=== PATIENT | male | born 1990 | race Caucasian/White ===

== ENCOUNTER 2016-11-15 21:17 | Emergency (ER) | payer BC ==
[2016-11-15 21:26] VITALS: BP 141/93
[2016-11-15] MEDS ORDERED: Tetan/Diph/Pertus SYR(Tdap)* 0.5 ML SYR(BOOSTRIX) use SYR IM ONE (22:18)
--- NOTE | 2016-11-15 22:40 | RAD ---
INDICATION: Left foot injury. TECHNIQUE: 3 views of the left foot were obtained. FINDINGS: The bones are in normal alignment. No fracture is seen. Joint spaces appear maintained. IMPRESSION: 1. NO EVIDENCE FOR FRACTURE. 2. THERE WAS A CLINICAL CONCERN FOR LISFRANC INJURY. THIS CAN BE FURTHER EVALUATED WITH AN MRI OF THE FOOT.
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
== END 2016-11-15 23:10 | disposition home or self-care (01) ==
LOC: UCEAST 21:17
DX: S91.312A Laceration without foreign body, left foot, initial encounter (principal); Z88.3 Allergy status to other anti-infective agents; Z88.0 Allergy status to penicillin; W45.8XXA Other foreign body or object entering through skin, initial encounter
CPT/HCPCS: 90471; 90715; 99213; G0463